=== PATIENT | female | born 1965 | race Caucasian/White ===

== ENCOUNTER 2021-12-08 08:37 | Observation (INO) ==
[2021-12-08 09:23] LABS: Basophils # 0.1 K/mcL (0.0-0.2); Basophils % 0.5 %; Eosinophils # 0.1 K/mcL (0.0-0.6); Eosinophils % 0.7 %; Hematocrit 34.7 % (35.3-44.9); Immature Granulocytes % 1.4 % (0-4); Lymphocytes # 1.2 K/mcL (0.6-4.6); Lymphocytes % 10.9 %; Mean Corpuscular HGB Conc 34.6 g/dL (31.6-35.5); Mean Corpuscular Hemoglobin 26.3 pg (28.0-33.3); Mean Corpuscular Volume 75.9 fL (83.0-100.0); Mean Platelet Volume 9.1 fL (9.4-12.4); Monocytes # 0.8 K/mcL (0.0-1.3); Monocytes % 6.9 %; Neutrophils # 8.9 K/mcL (1.6-8.9); Platelet Count 404 K/mcL (140-400); Red Blood Count 4.57 M/mcL (3.82-4.97); Red Cell Distribution Width 12.5 % (11.5-14.5); Segmented Neutrophils % 79.6 %; White Blood Count 11.2 K/mcL (4.3-11.1)
[2021-12-08 09:43] LABS: Alanine Aminotransferase 30 Units/L (7-52); Albumin 3.6 g/dL (3.5-5.7); Albumin/Globulin Ratio 1.2 (1.1-2.2); Alkaline Phosphatase 81 Units/L (34-104); Aspartate Amino Transferase 60 Units/L (13-39); BUN/Creatinine Ratio 11 (6-26); Bilirubin,Total 0.7 mg/dL (0.3-1.0); Blood Urea Nitrogen 6 mg/dL (6-20); Calcium 8.4 mg/dL (8.6-10.3); Carbon Dioxide 27 mEq/L (23-29); Chloride 80 mEq/L (98-107); Glucose 159 mg/dL (70-105); Osmolality,Calculated 247 (280-300); Potassium 2.6 mEq/L (3.5-5.1); Sodium 118 mEq/L (136-145); Total Protein 6.6 g/dL (6.4-8.9); eGFR For African Americans > 60 (> 60); eGFR For Non-African Americans > 60 (> 60)
[2021-12-08] MEDS ORDERED: 0.9 % Sodium Chloride 1,000 ML IV ONE (09:44)
[2021-12-08] MEDS ORDERED: Naloxone 0.4 MG/ML INJ IVP PRN (10:08)
[2021-12-08] MEDS ORDERED: Ondansetron 4 MG/2 ML VIAL IVP PRN (10:08)
[2021-12-08] MEDS ORDERED: Acetaminophen 325 MG TABLET PO PRN (10:08)
[2021-12-08] MEDS: 0.9 % Sodium Chloride 1,000 ML IVC SCH ×2 (11:18→23:34)
[2021-12-08 12:43] LABS: BUN/Creatinine Ratio 8 (6-26); Blood Urea Nitrogen 4 mg/dL (6-20); Calcium 7.9 mg/dL (8.6-10.3); Carbon Dioxide 27 mEq/L (23-29); Chloride 81 mEq/L (98-107); Glucose 139 mg/dL (70-105); Osmolality,Calculated 243 (280-300); Potassium 2.8 mEq/L (3.5-5.1); Sodium 117 mEq/L (136-145); eGFR For African Americans > 60 (> 60); eGFR For Non-African Americans > 60 (> 60)
[2021-12-08 18:16] LABS: BUN/Creatinine Ratio 6 (6-26); Blood Urea Nitrogen 3 mg/dL (6-20); Calcium 8.2 mg/dL (8.6-10.3); Carbon Dioxide 26 mEq/L (23-29); Chloride 83 mEq/L (98-107); Glucose 112 mg/dL (70-105); Osmolality,Calculated 247 (280-300); Potassium 2.9 mEq/L (3.5-5.1); Sodium 120 mEq/L (136-145); eGFR For African Americans > 60 (> 60); eGFR For Non-African Americans > 60 (> 60)
[2021-12-08] MEDS: Benzonatate 100 MG CAPSULE PO SCH (20:22)
[2021-12-08] MEDS ORDERED: Temazepam 15 MG CAPSULE PO SCH (21:00)
[2021-12-09] MEDS ORDERED: Chloraseptic Spray 177 ML BOTTLE MM PRN (04:21)
[2021-12-09 07:07] VITALS: BP 159/87; PULSE 91; RESP 19; TEMP 97.6; O2SAT 97
[2021-12-09 07:57] LABS: Hematocrit 33.8 % (35.3-44.9); Hemoglobin 11.7 g/dL (11.5-15.4); Mean Corpuscular HGB Conc 34.6 g/dL (31.6-35.5); Mean Corpuscular Hemoglobin 26.4 pg (28.0-33.3); Mean Corpuscular Volume 76.3 fL (83.0-100.0); Mean Platelet Volume 9.7 fL (9.4-12.4); Platelet Count 366 K/mcL (140-400); Red Blood Count 4.43 M/mcL (3.82-4.97); Red Cell Distribution Width 12.5 % (11.5-14.5); White Blood Count 10.7 K/mcL (4.3-11.1)
[2021-12-09] MEDS ORDERED: atenoloL 50 MG TABLET PO SCH (09:00)
[2021-12-09 09:59] LABS: BUN/Creatinine Ratio 6 (6-26); Blood Urea Nitrogen 3 mg/dL (6-20); Calcium 8.5 mg/dL (8.6-10.3); Carbon Dioxide 26 mEq/L (23-29); Chloride 87 mEq/L (98-107); Glucose 192 mg/dL (70-105); Osmolality,Calculated 254 (280-300); Potassium 3.4 mEq/L (3.5-5.1); Sodium 121 mEq/L (136-145); eGFR For African Americans > 60 (> 60); eGFR For Non-African Americans > 60 (> 60)
[2021-12-09] MEDS: Benzonatate 100 MG CAPSULE PO SCH (10:54)
== END 2021-12-09 11:00 | disposition home or self-care (01) ==
LOC: INPPIK 08:37 → EMEROOPIK 08:37 → INPPIK 18:51
PROVIDERS: ADMIT Internal Medicine; ATTEND Internal Medicine